=== PATIENT | male | born 1995 | race Caucasian/White ===

== ENCOUNTER 2017-07-13 19:19 | Emergency (ER) | payer OTHER ==
[2017-07-13 19:35] VITALS: BP 146/76
--- NOTE | 2017-07-13 20:22 | ED Physician Documentation ---
PD HPI HEAD INJURY - Stated complaint Stated Complaint: LIP LAC - Chief complaint Chief Complaint: Laceration - History obtained from History obtained from: Patient, Friend - History of Present Illness Mechanism of head injury: Fell Where head injury occurred: Street Timing - onset: Yesterday Pain level max: 5 Pain level now: 1 Location of injury: Other (lower lip) Quality of pain: Dull Associated symptoms: No: LOC, AMS, Amnesia, Nausea / vomiting, Neck pain, Paresthesias, Seizures Symptoms improve with: Rest Symptoms worsen with: Palpation Contributing factors: No: Anticoagulated, Intoxicated - Additional information Additional information: Patient is a 22-year-old male who was recently deployed in [employer], was in [place] yesterday on his transition home when he was skateboarding, fell and lacerated his lower lip. He has since returned home and came in for evaluation tonight. No current bleeding. No loss of consciousness. No vomiting. No altered mental status. No neck pain or back pain. No numbness or tingling. No dental injury. Review of Systems GI: denies: Vomiting Neurologic: denies: LOC PD PAST MEDICAL HISTORY - Past Medical History Past Medical History: No Cardiovascular: None Respiratory: None Neuro: None Endocrine/Autoimmune: None GI: None : None HEENT: None Psych: None Musculoskeletal: None Derm: None - Past Surgical History Past Surgical History: No - Present Medications Home Medications: Ambulatory Orders Medication Instructions Recorded Confirmed Chlorhexidine Gluconate [Peridex] 15 ml MM BID #150 ml 07/13/17 - Allergies Allergies/Adverse Reactions: Allergies Allergy/AdvReac Type Severity Reaction Status Date / Time No Known Drug Allergies Allergy Verified 07/13/17 19:33 - Social History Does the pt smoke?: No Smoking Status: Never smoker Does the pt drink ETOH?: Yes Does the pt have substance abuse?: No - Immunizations Immunizations are current?: Yes - POLST Patient has POLST: No PD ED PE NORMAL - Vitals Vital signs reviewed: Yes - General General: Alert and oriented X 3, No acute distress, Well developed/nourished - HEENT HEENT: PERRL, EOMI, Moist mucous membranes, Other (No scalp hematomas. There is an abrasion on the inner surface of the lower lip as well as a small laceration on the lower aspect of the chin. There are no through and through lacerations. Normal dentition. No mandibular or facial bone tenderness. ) - Neck Neck: Supple, no meningeal sign, No bony TTP - Cardiac Cardiac: RRR - Respiratory Respiratory: No respiratory distress, Clear bilaterally - Derm Derm: Warm and dry - Neuro Neuro: Alert and oriented X 3 Eye Opening: Spontaneous Motor: Obeys Commands Verbal: Oriented GCS Score: 15 Results - Vitals Vitals: Vital Signs - 24 hr 07/13/17 19:31 Temperature 36.7 C Heart Rate 74 Respiratory 16 Rate Blood Pressure 146/76 H O2 Saturation 99 PD MEDICAL DECISION MAKING - ED course Complexity details: considered differential, d/w patient ED course: Patient is a 22-year-old male who presents to the emergency department Greater than 24 hours after a fall yesterday. No lacerations to repair. Will place on Peridex for the lower lip abrasions. No evidence of skull fracture or intracranial hemorrhage that would require intervention. Head CT held at this time. Head injury instructions given at bedside. A friend will stay with the patient today. Patient counseled regarding signs and symptoms for which I believe and urgent re-evaluation would be necessary. Patient with good understanding of and agreement to plan and is comfortable going home at this time This document was made in part using voice recognition software. While efforts are made to proofread this document, sound alike and grammatical errors may occur. Departure - Departure Disposition: 01 Home, Self Care Clinical Impression: Laceration of lower lip Qualifiers: Encounter type: initial encounter Qualified Code(s): S01.511A - Laceration without foreign body of lip, initial encounter Condition: Good Instructions: ED Laceration All Follow-Up: GUICHO RAO MD [Primary Care Provider] - Within 1 week (for wound check) Prescriptions: Chlorhexidine Gluconate [Peridex] 15 ml MM BID #150 ml Comments: Keep the wound clean. Use the Peridex as prescribed. Return if you worsen. Follow-up with your doctor this week for a wound check. Discharge Date/Time: 07/13/17 20:29
== END 2017-07-13 20:29 | disposition home or self-care (01) ==
LOC: ED 19:19
DX: S01.511A Laceration without foreign body of lip, initial encounter (principal); V00.131A Fall from skateboard, initial encounter; Y93.51 Activity, roller skating (inline) and skateboarding
CPT/HCPCS: 99283